=== PATIENT | female | born 1945 | race Caucasian/White ===

== ENCOUNTER 2022-01-16 06:08 | Day surgery (SDC) | payer MEDICARE, BC ==
[2022-01-15 14:06] LABS: BASOPHILS % (AUTO) 0.6 % (0-1); EOSINOPHILS # (AUTO) 0.1 X10'3 (0-0.9); HEMATOCRIT 43.6 % (35.0-45.0); HEMOGLOBIN 14.6 g/dl (12.0-16.0); LYMPHOCYTES # (AUTO) 2.1 X10'3 (1.1-4.8); LYMPHOCYTES % (AUTO) 30.8 % (21-51); MEAN CORPUSCULAR HEMOGLOBIN 30.2 PG (27.0-31.0); MEAN CORPUSCULAR HGB CONC 33.5 g/dL (33.0-36.5); MEAN CORPUSCULAR VOLUME 90.1 FL (78-98); MEAN PLATELET VOLUME 8.1 FL (7.4-10.4); MONOCYTES # (AUTO) 0.6 X10'3 (0-0.9); MONOCYTES % (AUTO) 8.8 % (2-12); NEUTROPHILS # (AUTO) 4.1 X10'3 (1.8-7.7); NEUTROPHILS % (AUTO) 58.8 % (42-75); PLATELET COUNT 273 X10'3 (140-440); RED BLOOD COUNT 4.83 X10'6 (4.20-5.60); RED CELL DISTRIBUTION WIDTH 13.9 % (11.5-14.5); WHITE BLOOD COUNT 6.9 X10'3 (4.5-11.0)
[2022-01-15 14:17] LABS: APTT 34 SECONDS (22-32)
[2022-01-15 14:18] LABS: ANION GAP 9 (8-16); BLOOD UREA NITROGEN 26 MG/DL (7-18); BUN/CREATININE RATIO 32.9 (6.6-38.0); CALCIUM 9.6 MG/DL (8.5-10.1); CHLORIDE 105 MMOL/L (99-107); CREATININE 0.79 MG/DL (0.40-0.90); GLUCOSE 110 MG/DL (70-104); POTASSIUM 4.1 MMOL/L (3.5-5.1); SODIUM 142 MMOL/L (135-145); TOTAL CARBON DIOXIDE 28.1 MMOL/L (24-32); eGFR 71 ML/MIN
[~2022-01-16] VITALS: Ht 160 cm; Wt 119.5 kg
[2022-01-16] VITALS (10 sets, daily range): BP systolic 106–165; BP diastolic 60–76
[~2022-01-16 06:08] MED LIST: APIX5TAB3 PO; ASPI-611 PO; CALC-854 PO; DILT120C62 PO; FLEC50TA PO; IBUP-24 PO; MULT-1141 PO; QUIN40TA36 PO; TRIA1CAP88 PO; VITA-293 PO
[2022-01-16] MEDS ORDERED: LORazepam 0.5 MG tablet PO PRN (06:40)
[2022-01-16] MEDS ORDERED: normal saline 1,000 ML IV SCH (06:40)
[2022-01-16] MEDS ORDERED: diphenhydrAMINE 25mg capsule PO PRN (06:40)
[2022-01-16] MEDS ORDERED: ATOR20TA66 PO (06:42)
[2022-01-16] MEDS ORDERED: DILT-35 PO (06:42)
[2022-01-16] MEDS ORDERED: CYAN50009 PO (06:44)
[2022-01-16] MEDS ORDERED: Calcium Citrate (06:44)
[2022-01-16] MEDS ORDERED: LIDOCAINE 5% OINTMENT 35GM TP ONE (07:05)
[2022-01-16] MEDS ORDERED: heparin 1,000unit/ml 10ml vial 10 ML ONE (07:10)
[2022-01-16] MEDS ORDERED: fentaNYL/PF 50MCG/1 ML 2ML syringe ONE (07:10)
[2022-01-16] MEDS ORDERED: verapamil 2.5 mg/ml inj IV ONE (07:10)
[2022-01-16] MEDS ORDERED: midazolam 1 mg/ML 2ml injection ONE (07:10)
[2022-01-16] MEDS ORDERED: LIDOcaine 1% 30ml preserv. free vial ONE (07:10)
[2022-01-16] MEDS ORDERED: nitroGLYCERIN-Tridil 50MG/D5W 250 ML IV ONE (07:10)
[2022-01-16] MEDS ORDERED: iohexol 350 MG/1 ML 200ml bottle ONE (07:11)
[2022-01-16] MEDS ORDERED: LIDOcaine/PRILOcaine 5gm cream TP ONE (07:15)
--- NOTE | 2022-01-16 07:49 | NUR ---
Pt left unit for procedure
--- NOTE | 2022-01-16 10:27 | NUR ---
Pt up to ambulate and to restroom, voided. Pt denies sob, denies cp. VS stable as charted.
--- NOTE | 2022-01-16 12:50 | NUR ---
Pt up to bathroom, voided. Ambulated in room. Denies cp, denies sob. Pt site stable, DRSG DR&I, no s/s of bleeding or infection. Pt eating yogurt and jello as requested. VS stable as charted. Will continue to monitor.
== END 2022-01-16 14:00 | disposition home or self-care (01) ==
LOC: SSTAY O 06:08
PROVIDERS: ATTEND Internal Medicine Cardiovascular Disease
DX: R94.39 Abnormal result of other cardiovascular function study (principal); I25.119 Atherosclerotic heart disease of native coronary artery with unspecified angina pectoris; I10 Essential (primary) hypertension; E78.5 Hyperlipidemia, unspecified; E66.9 Obesity, unspecified; Z68.42 Body mass index [BMI] 45.0-49.9, adult; G47.33 Obstructive sleep apnea (adult) (pediatric); M19.90 Unspecified osteoarthritis, unspecified site; I48.0 Paroxysmal atrial fibrillation; F32.A Depression, unspecified; Z79.01 Long term (current) use of anticoagulants; Z79.82 Long term (current) use of aspirin; Z79.899 Other long term (current) drug therapy; Z90.49 Acquired absence of other specified parts of digestive tract; Z90.710 Acquired absence of both cervix and uterus; Z98.890 Other specified postprocedural states; Z81.8 Family history of other mental and behavioral disorders
CPT/HCPCS: 36415; 76937; 80048; 85025; 85610; 85730; 93005; 93458; 93571; 99152; 99153; C1769; C1894; J1644; J2250; J3010; J3490; J7030; Q0163; Q9967; 0523T; A4620; A5120; A6258

== ENCOUNTER 2023-05-29 10:04 | Day surgery (SDC) | payer MEDICARE, BC ==
[2023-05-28 15:22] LABS: BASOPHILS % (AUTO) 0.6 % (0-1); EOSINOPHILS # (AUTO) 0.1 X10'3 (0-0.9); EOSINOPHILS % (AUTO) 1.5 % (0-6); HEMATOCRIT 46.5 % (35.0-45.0); HEMOGLOBIN 15.2 g/dl (12.0-16.0); LYMPHOCYTES % (AUTO) 35.5 % (21-51); MEAN CORPUSCULAR HEMOGLOBIN 29.8 PG (27.0-31.0); MEAN CORPUSCULAR HGB CONC 32.7 g/dL (33.0-36.5); MEAN CORPUSCULAR VOLUME 90.9 FL (78-98); MEAN PLATELET VOLUME 8.3 FL (7.4-10.4); MONOCYTES # (AUTO) 0.7 X10'3 (0-0.9); MONOCYTES % (AUTO) 8.2 % (2-12); NEUTROPHILS # (AUTO) 4.6 X10'3 (1.8-7.7); NEUTROPHILS % (AUTO) 54.2 % (42-75); PLATELET COUNT 259 X10'3 (140-440); RED BLOOD COUNT 5.12 X10'6 (4.20-5.60); RED CELL DISTRIBUTION WIDTH 14.5 % (11.5-14.5); WHITE BLOOD COUNT 8.4 X10'3 (4.5-11.0)
[2023-05-28 15:34] LABS: ANION GAP 5 (8-16); APTT 33 SECONDS (22-32); BLOOD UREA NITROGEN 22 MG/DL (7-18); BUN/CREATININE RATIO 28.9 (10.0-20.0); CALCIUM 9.7 MG/DL (8.5-10.1); CHLORIDE 102 MMOL/L (99-107); CREATININE 0.76 MG/DL (0.40-0.90); GLUCOSE 105 MG/DL (70-104); POTASSIUM 3.9 MMOL/L (3.5-5.1); PROTHROMBIN TIME 9.8 SECONDS (9.0-12.0); SODIUM 138 MMOL/L (135-145); TOTAL CARBON DIOXIDE 30.7 MMOL/L (24-32); eGFR 74 ML/MIN
[2023-05-28 15:43] LABS: INR 0.9 INR
[2023-05-29] VITALS (9 sets, daily range): BP systolic 98–165; BP diastolic 48–88; PULSE 52–60; RESP 15–16; TEMP 98.1; O2SAT 93–96
[~2023-05-29] VITALS: Ht 160 cm; Wt 119.8 kg
[~2023-05-29 10:04] MED LIST changes: +ATOR20TA66 PO; -CALC-854 PO; +CYAN50009 PO; +Calcium Citrate PO; +DILT-35 PO; -DILT120C62 PO; -VITA-293 PO
[2023-05-29] MEDS ORDERED: normal saline 1,000 ML IV SCH (10:20)
[2023-05-29] MEDS ORDERED: diphenhydrAMINE 25mg capsule PO PRN (10:20)
[2023-05-29] MEDS ORDERED: LORazepam 0.5 MG tablet PO PRN (10:20)
[2023-05-29] MEDS ORDERED: METO-411 PO (10:26)
[2023-05-29] MEDS ORDERED: LIDOcaine 1% (10mg/ml) 2ml vial ONE (11:03)
[2023-05-29] MEDS ORDERED: midazolam 1 mg/ML 2ml injection ONE (11:03)
[2023-05-29] MEDS ORDERED: fentaNYL/PF 50MCG/1 ML 2ML syringe ONE (11:03)
[2023-05-29] MEDS ORDERED: verapamil 2.5 mg/ml inj IV ONE (11:03)
[2023-05-29] MEDS ORDERED: iohexol 350 MG/ML 50ML vial IV ONE (11:04)
[2023-05-29] MEDS ORDERED: heparin 1,000unit/ml 10ml vial 10 ML ONE (11:04)
[2023-05-29] MEDS ORDERED: nitroGLYCERIN 500mcg/5mL D5W 5 ML IV ONE (11:04)
[2023-05-29] MEDS ORDERED: iohexol 350MG/ML 100ml bottle IV ONE (11:04)
== END 2023-05-29 16:55 | disposition home or self-care (01) ==
LOC: SSTAY O 10:04
PROVIDERS: ATTEND Internal Medicine Cardiovascular Disease
DX: R94.39 Abnormal result of other cardiovascular function study (principal); I25.119 Atherosclerotic heart disease of native coronary artery with unspecified angina pectoris; G47.33 Obstructive sleep apnea (adult) (pediatric); I10 Essential (primary) hypertension; E78.5 Hyperlipidemia, unspecified; E66.9 Obesity, unspecified; Z68.42 Body mass index [BMI] 45.0-49.9, adult; M19.90 Unspecified osteoarthritis, unspecified site; I48.0 Paroxysmal atrial fibrillation; Z90.49 Acquired absence of other specified parts of digestive tract; Z98.890 Other specified postprocedural states; Z90.710 Acquired absence of both cervix and uterus; Z79.01 Long term (current) use of anticoagulants; Z79.899 Other long term (current) drug therapy; Z88.5 Allergy status to narcotic agent; Z91.048 Other nonmedicinal substance allergy status; Z81.8 Family history of other mental and behavioral disorders
CPT/HCPCS: 36415; 76937; 80048; 85025; 85610; 85730; 93005; 93458; 99152; A6258; J1644; J2250; J3010; J3490; J7030; Q0163; Q9967; 99153; A6402; C1725; C1894